=== PATIENT | male | born 1970 | race Caucasian/White ===

== ENCOUNTER 2016-04-29 02:30 | Emergency (ER) | payer BC ==
[~2016-04-29] VITALS: Ht 172.7 cm; Wt 72.7 kg
[~2016-04-29 02:30] MED LIST: CYMBALTA 30MG30 MG PO; NORCO 325 MG-51 TAB PO; PRIL40 PO; UNABLE; ZOVIRAX800 MG PO
[2016-04-29 02:32] VITALS: BP 154/124
[2016-04-29 03:25] VITALS: PULSE 95
== END 2016-04-29 03:25 | disposition home or self-care (01) ==
LOC: COL.ER 02:30
DX: F10.120 Alcohol abuse with intoxication, uncomplicated (principal); W19.XXXA Unspecified fall, initial encounter; Y92.29 Other specified public building as the place of occurrence of the external cause; Y90.9 Presence of alcohol in blood, level not specified